=== PATIENT | male | born 1955 | race Caucasian/White ===

== ENCOUNTER 2016-11-12 09:37 | Emergency (ER) | payer BC, OTHER ==
[2016-11-12 09:49] VITALS: BP 122/82
--- NOTE | 2016-11-12 10:27 | UC ---
Krystin Fountain Edward, scribed for Mini Cruz MD on 11/12/16 at 0955 . Skin Complaint HPI - HPI Summary HPI Summary: 61 y/o male presents to [facility] c/o red spot on the R armpit starting last night. Patient noted soreness in the area last night. He woke up this morning and the red area was larger and still sore. The red area is not pruritic. Denies fevers , chills, nausea. Not immunocompromised. minimal pain - no analgesia taken. PMHx 3 years ago cellulitis on L side (given abx), HTN, GERD, no PMHx MRSA. Non smoker, occasional EtOH, no drug use. No SHx. Past medications reviewed on visit. - History of Current Complaint Chief Complaint: [place] Stated Complaint: SKIN Hx Obtained From: Patient Onset/Duration: Sudden Onset, Lasting Days - Started last night, Still Present Timing: Constant Location: Discrete - R armpit Character: Pain, Redness Aggravating: Touch Alleviating: Nothing Associated Signs & Symptoms: Positive: Negative - No nausea, fever or chills - Allergy/Home Medications Allergies/Adverse Reactions: Allergies Allergy/AdvReac Type Severity Reaction Status Date / Time Penicillins Allergy Mild Rash Verified 11/12/16 09:43 Home Medications: Home Medications Bp Med 1 tab PO DAILY 11/12/16 [History] Cholesterol Med 1 tab PO DAILY 11/12/16 [History] Review of Systems Constitutional: Negative Skin: Rash - R axilla Eyes: Negative ENT: Negative Respiratory: Negative Cardiovascular: Negative Gastrointestinal: Negative Genitourinary: Negative Motor: Negative Neurovascular: Negative Musculoskeletal: Negative Neurological: Negative Psychological: Negative All Other Systems Reviewed And Are Negative: Yes PMH/Surg Hx/FS Hx/Imm Hx Previously Healthy: No Cardiovascular History: Hypertension - Surgical History Surgical History: None - Family History Known Family History: Positive: Cardiac Disease - father, Hypertension - Mother and father, Other - Hypercholesterolemia - father - Social History Occupation: Employed Full-time Lives: With Family Alcohol Use: Occasionally Substance Use Type: None Smoking Status (MU): Former Smoker Type: Cigarettes Have You Smoked in the Last Year: No When Did the Patient Quit Smoking/Using Tobacco: 20 years Physical Exam Triage Information Reviewed: Yes Appearance: Well-Appearing, No Pain Distress, Well-Nourished Vital Signs: Initial Vital Signs Temp 97.7 F 11/12/16 09:44 Pulse 69 11/12/16 09:44 Resp 18 11/12/16 09:44 BP 122/82 11/12/16 09:44 Pulse Ox 99 11/12/16 09:44 Vital Signs Reviewed: Yes Eyes: Negative: Discharge ENT: Positive: Hearing grossly normal Neck: Positive: Supple, Nontender Respiratory: Positive: No respiratory distress, No accessory muscle use Cardiovascular: Positive: Other: - 2+ radial Musculoskeletal Exam: Normal Neurological Exam: Normal Psychological Exam: Normal Skin: Positive: Other - Pt with 3x3 cm erythema right axilla, lateral aspect circular erythema with central area slightly deeper red. No fluctance, No induration Not pointing Course/Dx - Course Course Of Treatment: 61 y/o male presents to [facility] c/o erythema and mild discomfort in the R axilla starting last night. Will Start Doxy. warm soak. motrin/apap. s/s worsening infection - Diagnoses Provider Diagnoses: cellulitis Discharge - Discharge Plan Condition: Stable Disposition: HOME Prescriptions: DOXYcycline CAP(*) [DOXYcycline 100MG CAP(*)] 100 mg PO BID #20 cap Patient Education Materials: Cellulitis (ED) Referrals: Nikhil Schaefer MD [Primary Care Provider] - Additional Instructions: - Stay well hydrated. Drink plenty of non-alcoholic,non-caffinated beverages - Take antibiotics as prescribed until gone. Monitor your wound for signs of worsening infection - increased reddness, red streaking, fevers, chills. Reddness may increase over first 24hours - this is normal - Okay to apply warm soaks, 20 minutes at time, 2-3 times a day - call your primary care doctor or return with questions or concerns The documentation as recorded by the Krystin benites Edward accurately reflects the service I personally performed and the decisions made by , Mini Cruz MD.
== END 2016-11-12 10:20 | disposition home or self-care (01) ==
LOC: UCEAST 09:37
DX: L03.111 Cellulitis of right axilla (principal); Z87.891 Personal history of nicotine dependence
CPT/HCPCS: 99212; G0463